=== PATIENT | male | born 1945 | race Caucasian/White ===

== ENCOUNTER 2016-09-24 02:13 | Emergency (ER) | payer MEDICARE ==
[2016-09-24 05:40] LABS: HEMOGLOBIN 13.9 gm/dl (14.0-17.5); RED BLOOD COUNT 4.49 M/UL (4.20-5.50)
[2016-09-24 06:01] LABS: BUN/CREATININE RATIO 17 (0-10)
== END 2016-09-24 09:31 | disposition home or self-care (01) ==
LOC: ER1 02:13
PROVIDERS: Physician Assistant
DX: R07.89 Other chest pain (principal); R06.00 Dyspnea, unspecified; R05 Cough; R51 Headache; I48.91 Unspecified atrial fibrillation; Z88.2 Allergy status to sulfonamides; Z79.899 Other long term (current) drug therapy
CPT/HCPCS: 36415; 70450; 71010; 80053; 82550; 82553; 83874; 83880; 84484; 85025; 93005; 96374; 99284; C9113